=== PATIENT | male | born 1980 | race Hispanic/Latino ===

== ENCOUNTER 2020-01-21 14:55 | Emergency (ER) | payer OTHER | END 2020-01-21 15:22 | disposition home or self-care (01) | LOC: EDH 14:55 | DX: J18.9 Pneumonia, unspecified organism (principal); Z20.828 Contact with and (suspected) exposure to other viral communicable diseases | CPT/HCPCS: 71045 ==

== ENCOUNTER 2024-11-02 00:36 | Emergency (ER) | payer OTHER ==
[~2024-11-02] VITALS: Ht 182.9 cm; Wt 109.8 kg
[2024-11-02 01:07] LABS: BASOPHILS # (AUTO) 0.04 K/uL (0.00-0.20); BASOPHILS % (AUTO) 0.7 % (0.0-5.0); EOSINOPHILS # (AUTO) 0.26 K/uL (0.00-0.70); EOSINOPHILS % (AUTO) 4.8 % (0.0-8.0); HEMATOCRIT 40.6 % (42-54); IMMATURE GRANULOCYTE ABSOLUTE 0.02 K/uL (0-1); LYMPHOCYTES % (AUTO) 18.5 % (21.0-51.0); MEAN CORPUSCULAR HEMOGLOBIN 32.3 pg (27.0-33.0); MEAN CORPUSCULAR VOLUME 92.3 fL (79-99); MONOCYTES # (AUTO) 0.5 K/uL (0.1-1.0); MONOCYTES % (AUTO) 8.7 % (3.0-13.0); NEUTROPHILS # (AUTO) 3.6 K/uL (1.8-7.7); NEUTROPHILS % (AUTO) 66.9 % (40.0-77.0); PLATELET COUNT (AUTO) 242 K/uL (130-400); RED CELL DISTRIBUTION WIDTH 12.8 % (11.0-15.5); WHITE BLOOD COUNT (AUTO) 5.4 K/uL (4.8-10.8)
[2024-11-02 01:16] LABS: CREATININE 1.1 mg/dL (0.5-1.3); POTASSIUM 3.8 mmol/L (3.5-5.1)
[2024-11-02 01:36] LABS: B-TYPE NATRIURETIC PEPTIDE 6 pg/mL (0-100)
[2024-11-02 01:40] VITALS: BP 114/68; PULSE 64; RESP 18; TEMP 98; O2SAT 99
--- NOTE | 2024-11-02 01:42 | NUR ---
PATIENT REPORTED HE NO LONGER HAS CHEST PAIN AND WOULD RATHER GO HOME, STATED HE WOULD LIKE TO LEAVE AGAINST MEDICAL ADVISE. CURT RODRIGEZ MADE AWARE. PATIENT WAS EDUCATED ON AND VERBALIZED UNDERSTANDING OF THE RISKS AND CONSEQUENCES INVOLVED IN LEAVING THE [facility] AT THIS TIME, THE BENEFITS OF CONTINUED TREATMENT. PATIENT ADVISED TO FOLLOW UP WITH PCP, SEEK EMERGENCY HELP IF NEEDED. [employer] DEVELOPER AND CHARGE NURSE MADE AWARE. AMA FORM SIGNED BY PATIENT.
--- NOTE | 2024-11-02 01:44 | ERN ---
General Chief Complaint: Chest Pain Stated Complaint: C/O CP ON AND OFF, WITH HEADACHE, NAUSEA Time Seen by MD: 00:43 Time Seen by Midlevel: 00:43 Source: patient History of Present Illness Initial Comments 44-year-old male who presents to the emergency department due to chest pain occurring off and on all day. Reports headache, generalized weakness, decreased appetite but denies any current symptoms as they have all resolved. Denies significant past medical history. Allergies: Coded Allergies: No Known Allergies (Unverified Allergy, Unknown, 11/02/24) Past Medical History Past Medical History: No Pertinent History Past Surgical History: Appendectomy ROS Dictation Constitutional: Positive for generalized weakness, decreased appetite Negative for fever,chills, and weight loss Eyes: Negative for injury, pain,redness, and discharge ENT: Negative for injury,pain or swelling Cardiovascular: Positive for chest pain Negative for palpitations, and edema Respiratory: Negative for shortness of breath, cough, and wheezing, Abdomen/GI: Negative for abdominal pain, nausea, vomiting, diarrhea, and constipation Back: Negative for injury and pain : Negative for painful urination, bleeding or discharge MS/Extremity: Negative for injury and deformity Skin: Negative for rash, and discoloration Neuro: Positive for headache Negative for weakness, numbness, tingling, and seizure Psych: Negative for suicide ideation, homicidal ideation, and hallucinations Physical Exam Physical Exam Dictation General: awake, alert, no acute distress Head/Face: Normocephalic, atraumatic Eyes: PERRL, EOMI, normal conjuctiva ENT: oral cavity clear, oral mucosa moist Neck: Supple, normal range of motion Cardiovascular: RRR, normal S1/S2 Respiratory: CTAB, no respiratory distress, no rales or wheezes Abdomen: Soft, non-tender, non-distended, no guarding or rebound. Skin: Warm, dry, normal turgor, no rash MS/Extremity: Pulses equal, no cyanosis, neurovascular intact, FROM Neuro: COAx4, GCS 15, strength 5/5, CN 2-12 intact, normal cerebellar exam, normal gait Psych: Normal behavior, mood, and affect normal Results Laboratory and Microbiology Lab and Micro Result Laboratory Tests Test 11/02/24 01:00 White Blood Count 5.4 K/uL (4.8-10.8) Red Blood Count 4.40 MIL/uL (4.50-6.20) L Hemoglobin 14.2 g/dL (14.0-18.0) Hematocrit 40.6 % (42-54) L Mean Corpuscular Volume 92.3 fL (79-99) Mean Corpuscular Hemoglobin 32.3 pg (27.0-33.0) Mean Corpuscular Hemoglobin Concent 35.0 g/dL (32.0-36.0) Red Cell Distribution Width 12.8 % (11.0-15.5) Platelet Count 242 K/uL (130-400) Mean Platelet Volume 9.3 fL (7.5-10.5) Immature Granulocyte % (Auto) 0.4 % (0-1) Neutrophils (%) (Auto) 66.9 % (40.0-77.0) Lymphocytes (%) (Auto) 18.5 % (21.0-51.0) L Monocytes (%) (Auto) 8.7 % (3.0-13.0) Eosinophils (%) (Auto) 4.8 % (0.0-8.0) Basophils (%) (Auto) 0.7 % (0.0-5.0) Neutrophils # (Auto) 3.6 K/uL (1.8-7.7) Lymphocytes # (Auto) 1.0 K/uL (1.0-4.8) Monocytes # (Auto) 0.5 K/uL (0.1-1.0) Eosinophils # (Auto) 0.26 K/uL (0.00-0.70) Basophils # (Auto) 0.04 K/uL (0.00-0.20) Absolute Immature Granulocyte (auto 0.02 K/uL (0-1) Nucleated Red Blood Cells 0.0 % (0.0-0.19) Sodium Level 136 mmol/L (136-145) Potassium Level 3.8 mmol/L (3.5-5.1) Chloride Level 103 mmol/L (101-111) Carbon Dioxide Level 26 mmol/L (21-32) Blood Urea Nitrogen 14 mg/dL (7-18) Creatinine 1.1 mg/dL (0.5-1.3) Glomerular Filtration Rate Calc 84 mL/min (>90) Random Glucose 95 mg/dL (70-105) Total Calcium 8.2 mg/dL (8.5-10.1) L Total Creatine Kinase 114 U/L (21-232) Troponin I High Sensitivity < 4 ng/L (4-75) L B-Type Natriuretic Peptide 6 pg/mL (0-100) Labs Reviewed?: Yes EKG/XRAY/US/CT/MRI EKG Comment Date: 11/02/2024 Time:00:38 Rate: 66 EKG interpretation: Sinus rhythm, no STEMI, normal EKG Reviewed by ED Attending MDM MDM: Differential diagnosis: Anxiety, MN, ACS, dehydration, electrolyte imbalance Rationale: 44-year-old male who presents to the emergency department due to chest pain occurring off and on all day. Reports headache, generalized weakness, decreased appetite but denies any current symptoms as they have all resolved. Denies significant past medical history. Patient left against medical advice prior to all results obtained. There are no social concerns with this patient. I independently interpreted the test that were performed, results were reviewed by me and considered findings on radiology if ordered. Medical management and examination interpretation discussions were had by me with other qualified healthcare professionals as indicated for the patient's care. ED Course Orders Procedure Category Date Status Time Vital Signs Per CPOE 11/02/24 Transmitted Routine 00:41 B-Type Natriuretic LAB 11/02/24 Complete Peptide 00:41 Chest 1vw RAD 11/02/24 Logged 00:41 12 Lead Ekg Tracing- EKG 11/02/24 Logged Technical 00:41 Oxygen By Nc/Pulse Ox CPOE 11/02/24 Transmitted 00:41 Maintain Iv CPOE 11/02/24 Transmitted 00:41 Iv Insertion CPOE 11/02/24 Transmitted 00:41 Cardiac Monitoring CPOE 11/02/24 Transmitted 00:41 Pulse Oximetry With CPOE 11/02/24 Transmitted Vs And Prn 00:41 Cbc With Differential LAB 11/02/24 Complete 00:41 Activity: Br W/Brp CPOE 11/02/24 Transmitted With Assist 00:41 Creatine Kinase, Total LAB 11/02/24 Complete 00:41 Troponin I High LAB 11/02/24 Complete Sensitivity 00:41 Urinalysis Profile LAB 11/02/24 Logged 00:41 Basic Metabolic Panel LAB 11/02/24 Complete 00:41 Drug Screen Urine LAB 11/02/24 Logged 00:43 Vital Signs Date Time Temp Pulse Resp B/P (MAP) Pulse Ox O2 Delivery O2 Flow Rate FiO2 5/8/25 01:03 98.2 67 20 116/71 96 Room Air* 0 21 11/02/24 00:38 98.4 63 20 128/77 99 Room Air DX & DISP Disposition: AMA Departure Impression: Primary Impression: Left against medical advice Condition: Stable Referrals: TIBURCIO MORTON (PCP) I performed the substantive portion of the visit. I have reviewed and personally made and approve the management plan that is documented in the notes by myself or the DIEGO. I acknowledge full responsibility for the patient's management plan. ADELINE REID November 02, 2024 01:44
--- NOTE | 2024-11-02 08:49 | EKG ---
[facility] Test Date: 2024-11-02 Test Time: 00:38:45 Pat Name: OSMAN LAST Department: ED Room: Gender: M Gold Buyer: [id number] : 1980 Requested By: YONATAN JEFFRIES Order Number: [id number] Reading MD: Byron Nguyễn Measurements Intervals Richardson Rate: 66 P: 39 TN: 167 QRS: 36 QRSD: 92 T: 39 QT: 361 QTc: 378 Interpretive Statements Sinus rhythm No previous ECG available for comparison Electronically Signed On 11-04-2024 12:27:28 CDT by Byron Nguyễn Please click the below link to view image of tracing.
== END 2024-11-02 01:52 | disposition left against medical advice (07) ==
LOC: EDH 00:36
DX: R07.89 Other chest pain (principal); R51.9 Headache, unspecified; R53.1 Weakness; Z90.49 Acquired absence of other specified parts of digestive tract
CPT/HCPCS: 36415; 80048; 82550; 83880; 84484; 85025; 93005; 99284